=== PATIENT | male | born 1990 | race Caucasian/White ===

== ENCOUNTER 2021-05-22 16:52 | Emergency (ER) | payer MEDICAID ==
[~2021-05-22] VITALS: Ht 170.2 cm; Wt 65.5 kg
[2021-05-22 18:54] LABS: BASOPHILS % (AUTO) 0.5 % (0.0-2.0); EOSINOPHILS % (AUTO) 0.3 % (1.0-6.0); HEMATOCRIT 45.8 % (41-53); HEMOGLOBIN 15.1 g/dL (13.5-17.5); LYMPHOCYTES # (AUTO) 1.7 K/uL (1.0-4.8); LYMPHOCYTES % (AUTO) 25.2 % (22.0-44.0); MEAN CORPUSCULAR HEMOGLOBIN 28.4 pg (26.0-34.0); MEAN CORPUSCULAR VOLUME 86 fL (80-100); MONOCYTES # (AUTO) 0.5 K/uL (0.1-1.0); MONOCYTES % (AUTO) 7.2 % (2.0-9.0); NEUTROPHILS # (AUTO) 4.5 K/uL (1.8-7.7); NEUTROPHILS % (AUTO) 66.8 % (40.0-70.0); PLATELET COUNT (AUTO) 254 K/uL (150-450); RED CELL DISTRIBUTION WIDTH 13.8 % (11.5-14.5)
[2021-05-22 19:11] LABS: ANION GAP 7 mmol/L (8-16); CALCIUM, TOTAL 9.3 mg/dL (8.8-10.5); CARBON DIOXIDE 29 mmol/L (22-29); CHLORIDE 109 mmol/L (98-107); CREATININE 1.07 mg/dL (0.60-1.30); GLOMERULAR FILTR. RATE CALC > 60 mL/min (>60); GLUCOSE,RANDOM 80 mg/dL (70-110); POTASSIUM 4.4 mmol/L (3.5-5.1); SODIUM SERUM 145 mmol/L (136-145); UREA NITROGEN, BLOOD 14 mg/dL (7-18)
[2021-05-22 19:16] LABS: ALANINE AMINOTRANSFERASE 17 U/L (12-78); ALBUMIN 4.2 g/dL (3.4-5.0); ALKALINE PHOSPHATASE 70 U/L (46-116); ASPARTATE AMINOTRANSFERASE 18 U/L (15-37); BILIRUBIN,TOTAL 1.3 mg/dL (0.1-1.0); TOTAL PROTEIN, SERUM 7.9 g/dL (6.4-8.2)
[2021-05-22 19:17] VITALS: BP 105/72
== END 2021-05-22 20:24 | disposition home or self-care (01) ==
LOC: EMS 17:03
DX: F20.9 Schizophrenia, unspecified (principal)
CPT/HCPCS: 36415; 80053; 85025; 99284; G0480

== ENCOUNTER 2021-05-26 21:50 | Inpatient (IN) | payer MEDICAID ==
[~2021-05-26] VITALS: Ht 167.6 cm; Wt 59.9 kg
[2021-05-27] MEDS ORDERED: ZOLPIDEM TARTRATE 10 MG TABLET PO PRN (06:15)
[2021-05-27 06:55] VITALS: BP 117/71
[2021-05-27 08:08] VITALS: BP 112/69
[2021-05-27] MEDS ORDERED: LOPERAMIDE HCL 2 MG CAPSULE PO PRN (11:00)
[2021-05-27] MEDS ORDERED: MAGNESIUM HYDROXIDE SUSPENSION 30 ML UDCUP PO PRN (11:00)
[2021-05-27] MEDS ORDERED: ACETAMINOPHEN 325 MG TABLET PO PRN (11:00)
[2021-05-27] MEDS ORDERED: PETROLATUM,WHITE 28 GM JELLY TP PRN (11:00)
[2021-05-27] MEDS ORDERED: ALBUTEROL SULFATE HFA 90 MCG/PUFF 8 GM INHALER IH PRN (11:00)
[2021-05-27] MEDS ORDERED: IBUPROFEN 600 MG TABLET PO PRN (11:00)
[2021-05-27] MEDS ORDERED: ONDANSETRON HCL 4 MG TABLET PO PRN (11:00)
[2021-05-27] MEDS ORDERED: MAG HYDROX/AL HYDROX/SIMETH ES 30 ML SUSPENSION UDCUP PO PRN (11:00)
[2021-05-27] MEDS ORDERED: BACITRACIN 28 GM OINTMENT TP PRN (11:00)
[2021-05-27] MEDS ORDERED: DOCUSATE SODIUM 100 MG CAPSULE PO PRN (11:00)
[2021-05-27] MEDS ORDERED: BENZOCAINE/MENTHOL LOZENGE PO PRN (11:00)
[2021-05-27] MEDS ORDERED: OMEPRAZOLE 20 MG CAPSULE PO PRN (11:00)
[2021-05-27] MEDS ORDERED: CloNIDine HCL 0.1 MG TABLET PO PRN (11:00)
[2021-05-27] MEDS ORDERED: INFLUENZA VIRUS VACCINE QVS 2021-22 (6MO+)/PF 60 MCG/0.5 ML SYRINGE IM. ONE (15:00)
[2021-05-27 16:22] VITALS: BP 105/69
[2021-05-27] MEDS: RisperiDONE 1 MG TABLET PO SCH (16:56)
[2021-05-28 00:25] VITALS: BP 110/72
[2021-05-28 08:33] VITALS: BP 101/66
[2021-05-28] MEDS: RisperiDONE 1 MG TABLET PO SCH ×2 (09:50→16:22)
[2021-05-28 16:16] VITALS: BP 106/62
[2021-05-29 01:37] VITALS: BP 101/62
[2021-05-29 08:19] VITALS: BP 107/62
[2021-05-29] MEDS: RisperiDONE 1 MG TABLET PO SCH ×2 (09:15→16:28)
[2021-05-29 16:33] VITALS: BP 115/65
[2021-05-30 00:57] VITALS: BP 108/57
[2021-05-30 08:29] VITALS: BP 108/66
[2021-05-30] MEDS: RisperiDONE 1 MG TABLET PO SCH ×2 (08:38→16:07)
[2021-05-30 16:16] VITALS: BP 109/67
[2021-05-31 05:46] VITALS: BP 106/58
[2021-05-31 08:16] VITALS: BP 110/64
[2021-05-31 08:32] LABS: COVID AG,FIA SOURCE NASOPHARYNGEAL
[2021-05-31] MEDS: RisperiDONE 1 MG TABLET PO SCH ×2 (08:53→17:05)
[2021-05-31 16:22] VITALS: BP 110/70
[2021-06-01 01:42] VITALS: BP 107/63
[2021-06-01 08:31] VITALS: BP 97/60
[2021-06-01] MEDS: RisperiDONE 1 MG TABLET PO SCH ×2 (08:42→17:03)
[2021-06-01 16:22] VITALS: BP 102/61
[2021-06-02 05:21] VITALS: BP 109/66
[2021-06-02 08:33] VITALS: BP 98/59
[2021-06-02] MEDS: RisperiDONE 2 MG TABLET PO SCH ×2 (08:47→16:20)
[2021-06-02 16:27] VITALS: BP 106/62
[2021-06-03 01:10] VITALS: BP 102/61
[2021-06-03] MEDS: RisperiDONE 2 MG TABLET PO SCH ×2 (08:19→15:59)
[2021-06-03 08:23] VITALS: BP 105/62
[2021-06-03 16:11] VITALS: BP 106/68
[2021-06-03] MEDS: LORazepam 2 MG TABLET PO PRN (20:54)
[2021-06-04 00:46] VITALS: BP 109/67
[2021-06-04 08:39] VITALS: BP 102/60
[2021-06-04] MEDS: RisperiDONE 2 MG TABLET PO SCH ×2 (09:28→16:20)
[2021-06-04 16:08] VITALS: BP 123/78
[2021-06-05 02:21] VITALS: BP 108/64
[2021-06-05] MEDS: RisperiDONE 2 MG TABLET PO SCH ×2 (08:23→16:14)
[2021-06-05 08:26] VITALS: BP 112/62
[2021-06-05 16:24] VITALS: BP 106/66
[2021-06-06 00:48] VITALS: BP 111/72
[2021-06-06 07:47] LABS: COVID AG,FIA SOURCE NASOPHARYNGEAL
[2021-06-06] MEDS: RisperiDONE 2 MG TABLET PO SCH ×2 (08:20→16:36)
[2021-06-06 08:21] VITALS: BP 107/68
[2021-06-06 16:20] VITALS: BP 115/75
[2021-06-07 01:02] VITALS: BP 110/69
[2021-06-07 08:10] VITALS: BP 110/67
[2021-06-07] MEDS: RisperiDONE 2 MG TABLET PO SCH ×2 (08:25→16:36)
[2021-06-07] MEDS ORDERED: ZOLPIDEM TARTRATE 5 MG TABLET PO PRN (15:45)
[2021-06-07 16:15] VITALS: BP 134/73
[2021-06-07] MEDS: LORazepam 2 MG TABLET PO PRN (17:20)
[2021-06-08 02:56] VITALS: BP 124/70
[2021-06-08 08:30] VITALS: BP 107/67
[2021-06-08] MEDS: RisperiDONE 2 MG TABLET PO SCH ×2 (09:29→16:41)
[2021-06-08 16:17] VITALS: BP 115/68
[2021-06-09 01:43] VITALS: BP 116/73
[2021-06-09] MEDS: LORazepam 2 MG TABLET PO PRN (02:46)
[2021-06-09 08:21] VITALS: BP 113/74
[2021-06-09] MEDS: RisperiDONE 2 MG TABLET PO SCH ×2 (09:00→16:19)
[2021-06-09 16:19] VITALS: BP 124/81
[2021-06-09] MEDS: MELATONIN 5 MG TABLET PO PRN (20:20)
[2021-06-10 00:42] VITALS: BP 113/76
[2021-06-10 02:40] VITALS: BP 108/78
[2021-06-10] MEDS: LORazepam 2 MG TABLET PO PRN (02:43)
[2021-06-10 08:39] VITALS: BP 115/66
[2021-06-10] MEDS: RisperiDONE 2 MG TABLET PO SCH ×2 (09:06→16:32)
[2021-06-10 16:21] VITALS: BP 122/71
[2021-06-11 01:00] VITALS: BP 130/82
[2021-06-11] MEDS: LORazepam 2 MG TABLET PO PRN (03:43)
[2021-06-11 08:20] VITALS: BP 137/79
[2021-06-11] MEDS: RisperiDONE 2 MG TABLET PO SCH ×2 (08:27→16:47)
[2021-06-11 16:11] VITALS: BP 125/78
[2021-06-12 01:12] VITALS: BP 127/79
[2021-06-12] MEDS: MELATONIN 5 MG TABLET PO PRN (01:13)
[2021-06-12 07:31] LABS: COVID AG,FIA SOURCE NASAL SWAB
[2021-06-12 08:12] VITALS: BP 109/64
[2021-06-12] MEDS: RisperiDONE 2 MG TABLET PO SCH ×2 (08:18→16:37)
[2021-06-12 16:17] VITALS: BP 129/79
[2021-06-12] MEDS: LORazepam 2 MG TABLET PO PRN (18:30)
[2021-06-13 00:32] VITALS: BP 129/82
[2021-06-13 08:20] VITALS: BP 108/68
[2021-06-13] MEDS: RisperiDONE 2 MG TABLET PO SCH ×2 (08:38→16:41)
[2021-06-13 16:22] VITALS: BP 119/78
[2021-06-13] MEDS: MELATONIN 5 MG TABLET PO PRN (21:20)
[2021-06-14 00:41] VITALS: BP 119/77
[2021-06-14] MEDS: HALOPERIDOL 5 MG TABLET PO PRN (04:53)
[2021-06-14] MEDS: RisperiDONE 2 MG TABLET PO SCH ×2 (08:34→16:35)
[2021-06-14 08:38] VITALS: BP 123/75
[2021-06-14] MEDS: LORazepam 2 MG TABLET PO PRN (09:17)
[2021-06-14 16:26] VITALS: BP 111/69
[2021-06-14] MEDS: MELATONIN 5 MG TABLET PO PRN (20:30)
[2021-06-15 01:28] VITALS: BP 127/84
[2021-06-15] MEDS: RisperiDONE 2 MG TABLET PO SCH ×2 (08:44→16:29)
[2021-06-15 12:16] VITALS: BP 122/74
[2021-06-15 16:36] VITALS: BP 137/85
[2021-06-15] MEDS: HALOPERIDOL 5 MG TABLET PO PRN (18:43)
[2021-06-15] MEDS: LORazepam 2 MG TABLET PO PRN (20:43)
[2021-06-15] MEDS: MELATONIN 5 MG TABLET PO PRN (20:43)
[2021-06-16 06:20] VITALS: BP 126/84
[2021-06-16 08:45] VITALS: BP 106/63
[2021-06-16] MEDS: RisperiDONE 2 MG TABLET PO SCH (09:08)
[2021-06-16] MEDS ORDERED: RISP2TAB45 PO (11:26)
== END 2021-06-16 13:25 | disposition home or self-care (01) | DRG 750 ==
LOC: B2S 05-27 06:00
PROVIDERS: ADMIT Psychiatry & Neurology Psychiatry; ATTEND Psychiatry & Neurology Psychiatry
DX: F20.0 Paranoid schizophrenia (principal); F19.10 Other psychoactive substance abuse, uncomplicated; F41.9 Anxiety disorder, unspecified; G47.00 Insomnia, unspecified; K59.00 Constipation, unspecified; Z20.822 Contact with and (suspected) exposure to COVID-19; Z71.6 Tobacco abuse counseling; Z72.0 Tobacco use
CPT/HCPCS: Q9967; Z7610